=== PATIENT | male | born 1940 | race Caucasian/White ===

== ENCOUNTER 2019-03-16 12:59 | Emergency (ER) | payer MEDICARE, BC ==
[~2019-03-16] VITALS: Ht 190.5 cm; Wt 106.8 kg
[~2019-03-16 12:59] MED LIST: CIPR500T4 OR; DONNATAL PO; FERR325T OR; FLAG500T OR; IBUP400T OR; MIRALEX PO; PERC5TAB8 OR; PERC7.5T8 OR; PRIL40CA OR
[2019-03-16] MEDS ORDERED: FLOM0.4C39 PO (13:13)
[2019-03-16] MEDS ORDERED: IBUP-1022 PO (13:13)
[2019-03-16] MEDS ORDERED: NS 1,000 ML IV SCH (13:23)
[2019-03-16] MEDS ORDERED: METOPROLOL TART 50 MG TAB PO ONE (13:30)
[2019-03-16] MEDS ORDERED: ASPIRIN 81 MG CHEW TABLET PO ONE (13:30)
[2019-03-16] MEDS: METOPROLOL 5 MG/5 ML VIAL IV SCH ×3 (13:35→13:40)
[2019-03-16 13:41] LABS: BASO % 0.7 % (0.0-1.0); EOS # 0.1 10^3/uL (0.0-0.5); EOS % 2.4 % (0.0-3.0); HEMATOCRIT 47.5 % (42.0-52.0); HEMOGLOBIN 16.5 g/dl (13.5-17.5); LYMPH # 0.9 10^3/uL (1.5-5.0); LYMPH % 16.6 % (24.0-44.0); MEAN CORPUSCULAR HEMOGLOBIN 31.4 pg (27.0-33.0); MEAN CORPUSCULAR HGB CONC 34.7 g/dl (32.0-36.5); MEAN CORPUSCULAR VOLUME 90.5 fl (80.0-96.0); MONO # 0.5 10^3/uL (0.0-0.8); MONO % 8.3 % (0.0-5.0); NEUTROPHILS # 3.9 10^3/uL (1.5-8.5); NEUTROPHILS % 71.6 % (36.0-66.0); PLATELET COUNT, AUTOMATED 197 10^3/uL (150-450); RED BLOOD COUNT 5.25 10^6/uL (4.30-6.10); WHITE BLOOD COUNT 5.4 10^3/uL (4.0-10.0)
[2019-03-16 13:50] VITALS: BP 144/101
--- NOTE | 2019-03-16 13:58 | REP ---
Clinical: Acute chest pain . Comparison: None . Findings: The mediastinum and cardiac silhouette are stable and within normal limits for portable technique. The lung denny are clear without acute consolidation, effusion, or pneumothorax. Skeletal structures are intact. Impression: No acute cardiopulmonary process appreciated. Electronically Signed by Kevin Khalil MD 03/16/2019 01:49 P
[2019-03-16 13:59] LABS: INR 1.03; PROTHROMBIN TIME 13.2 SECONDS (11.8-14.0)
[2019-03-16 14:19] LABS: ALBUMIN 3.9 GM/DL (3.2-5.2); ALT/SGPT 34 U/L (12-78); BILIRUBIN,DIRECT 0.1 MG/DL (0.0-0.2); BILIRUBIN,TOTAL 0.8 MG/DL (0.2-1.0); BLOOD UREA NITROGEN 13 MG/DL (7-18); CALCIUM LEVEL 9.4 MG/DL (8.8-10.2); CARBON DIOXIDE LEVEL 25 MEQ/L (21-32); CHLORIDE LEVEL 109 MEQ/L (98-107); CK-MB VALUE MASS 6.5 NG/ML (<3.6); CPK CREATINE PHOSPHOKINASE 206 U/L (39-308); CREATININE FOR GFR 0.85 MG/DL (0.70-1.30); GLOMERULAR FILTRATION RATE > 60.0 (>42); GLUCOSE, FASTING 114 MG/DL (70-100); LIPASE 63 U/L (73-393); MB/CK RELATIVE INDEX 3.16 (< OR =4); POTASSIUM SERUM 4.4 MEQ/L (3.5-5.1); SODIUM LEVEL 142 MEQ/L (136-145); TOTAL PROTEIN 7.2 GM/DL (6.4-8.2); TROPONIN I < 0.02 NG/ML (< 0.10)
[2019-03-16 15:15] VITALS: BP 135/87
[2019-03-16] MEDS ORDERED: APIXABAN 5 MG TAB (ELIQUIS) PO ONE (15:15)
[2019-03-16] MEDS ORDERED: ELIQ5TAB PO (15:17)
[2019-03-16] MEDS ORDERED: METO50TA7 PO (15:17)
--- NOTE | 2019-03-18 06:47 | ECGEPIP ---
[facility] - ED Test Date: 2019-03-16 Pat Name: JEWELS LAMA JR Department: Room: - Gender: Male Tape Coater: BONILLA : 1940 Requested By: TOMASZ Alatorre Order Number: [id number] Reading MD: Zac De León Measurements Intervals Thomson Rate: 106 P: MT: 0 QRS: -62 QRSD: 109 T: 31 QT: 346 QTc: 461 Interpretive Statements ATRIAL FIBRILLATION WITH RAPID VENTRICULAR RESPONSE LEFT ANTERIOR FASCICULAR BLOCK NO PRIORS FOR COMPARISON Electronically Signed on 03-18-2019 6:46:14 EDT by Zac De León
== END 2019-03-16 15:34 | disposition home or self-care (01) ==
LOC: M ED 12:59
DX: I48.91 Unspecified atrial fibrillation (principal); I44.4 Left anterior fascicular block; Z79.01 Long term (current) use of anticoagulants; Z79.899 Other long term (current) drug therapy; Z88.0 Allergy status to penicillin